=== PATIENT | female | born 1995 | race Asian ===

== ENCOUNTER 2018-11-25 16:52 | Emergency (ER) | payer OTHER ==
[2018-11-25 16:55] VITALS: BMI 32.3
--- NOTE | 2018-11-25 16:56 | PDOC ---
Rapid Medical Evaluation Chief Complaint: Allergic Reaction Time Seen by Provider: 11/25/18 16:53 Medical Evaluation: Allergies Allergy/AdvReac Type Severity Reaction Status Date / Time amoxicillin [Amoxicillin] Allergy Verified 07/27/14 09:26 11/25/18 16:53 I have performed a brief in person evaluation of the patient. 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 She contacted her flight attendant/inflight manager who advised her to take Benadryl 50 mg PO which she took and administer herself Epi. She has never had to use her Epi pen before. PE: Skin: flesh colored papules to right UE and around neck. HEENT: Oropharynx clear. No tongue edema or elevation Lungs: Clear Heart: RRR MS: Moves all extremities Neuro: Alert Psych: Appropriate affect The patient will proceed to main ED for further evaluation. Discharge Disposition - Diagnosis Allergic reaction Qualifiers: Encounter type: initial encounter Qualified Code(s): T78.40XA - Allergy, unspecified, initial encounter - Referrals - Patient Instructions - Post Discharge Activity
--- NOTE | 2018-11-25 17:10 | PDOC ---
History of Present Illness - General Chief Complaint: Allergic Reaction Stated Complaint: allergies Time Seen by Provider: 11/25/18 16:53 - History of Present Illness Initial Comments: 23 year old female with PMH of cat allergy presenting with urticaria and wheezing after a desensitization shot in her physician's office. Patient skipped her previous shot and believes this is why her reaction to this shot was so severe. She had her shot around 14:00 and it burned slightly. One hour later she had some mild urticaria around her injection site and across her chest. She called her physician who advised her to take two Benadryl 25 MG at 16 :15 and then an epi pen at 16:45 after noticing wheezing, eye itching, and cough. Denies nausea, vomiting, lip swelling, or other symptoms. 11/25/18 17:25 Past History - Past Medical History Allergies/Adverse Reactions: Allergies Allergy/AdvReac Type Severity Reaction Status Date / Time amoxicillin [Amoxicillin] Allergy Verified 07/27/14 09:26 Home Medications: Ambulatory Orders Epinephrine [Epipen] 0.3 mg IJ ONCE PRN #1 auto.injct 11/25/18 Prednisone [Deltasone] 40 mg PO DAILY 4 Days #8 tablet 11/25/18 Ranitidine [Zantac -] 150 mg PO DAILY 7 Days #7 tablet 11/25/18 GI Disorders: Yes (gerd) - Reproductive History (#): 0 - Suicide/Smoking/Psychosocial Hx Smoking History: Never smoked Hx Alcohol Use: No Drug/Substance Use Hx: No Substance Use Type: None Hx Substance Use Treatment: No Review of Systems - Review of Systems Constitutional: No: Chills, Diaphoresis, Fever HEENTM: No: Eye Pain, Blurred Vision, Tearing Respiratory: Yes: Shortness of Breath, Wheezing. No: Cough, Orthopnea Cardiac (ROS): No: Chest Pain, Edema, Irregular Heart Rate ABD/GI: No: Constipated, Diarrhea, Nausea, Vomiting : No: Burning, Dysuria, Discharge Integumentary: Yes: Erythema, Lesions, Pruritus Neurological: No: Headache, Paresthesia, Weakness Psychiatric: No: Anxiety, Depression Endocrine: No: Excessive Sweating, Flushing Hematologic/Lymphatic: No: Anemia, Blood Clots, Easy Bleeding *Physical Exam - Vital Signs Last Vital Signs Temp Pulse Resp BP Pulse Ox 98.1 F 102 H 20 150/76 98 11/25/18 16:53 11/25/18 16:53 11/25/18 16:53 11/25/18 16:53 11/25/18 16:53 - Physical Exam General Appearance: Yes: Nourished, Appropriately Dressed. No: Apparent Distress HEENT: positive: EOMI, AMY, Normal ENT Inspection, Normal Voice Neck: positive: Trachea midline, Normal Thyroid, Supple. negative: Tender, Rigid Respiratory/Chest: positive: Lungs Clear, Normal Breath Sounds. negative: Chest Tender, Respiratory Distress, Accessory Muscle Use Cardiovascular: positive: Regular Rhythm, Regular Rate Gastrointestinal/Abdominal: positive: Normal Bowel Sounds, Flat, Soft. negative : Tender Lymphatic: negative: Adenopathy, Tenderness Musculoskeletal: positive: Normal Inspection. negative: Decreased Range of Motion Extremity: positive: Normal Capillary Refill, Normal Inspection, Normal Range of Motion. negative: Tender Integumentary: positive: Normal Color, Dry, Warm, Rash (mild urticaria over left arm and across upper chest/ lower neck that appears to be resolving), Other Neurologic: positive: Fully Oriented, Alert, Normal Mood/Affect, Normal Response , Motor Strength 5/5 Medical Decision Making - Medical Decision Making 23 year old female with PMH of cat allergy presenting with allergic reaction to desensitization shot a few hours prior with improvement s/p epinephrine and Benadryl 50 mg. Given steroids 60 MG and ranitidine. Patient' symptoms improved and monitored for 6 hours then discharged. Given PCP and other follow up resources. Dr. Stewart will DC when ready. 11/25/18 18:30 *DC/Admit/Observation/Transfer Diagnosis at time of Disposition: Allergic reaction Qualifiers: Encounter type: initial encounter Qualified Code(s): T78.40XA - Allergy, unspecified, initial encounter - Discharge Dispostion Disposition: HOME Condition at time of disposition: Improved Decision to Admit order: No - Prescriptions Prescriptions: Epinephrine [Epipen] 0.3 mg IJ ONCE PRN #1 auto.injct PRN Reason: Dry Skin Prednisone [Deltasone] 40 mg PO DAILY 4 Days #8 tablet Ranitidine [Zantac -] 150 mg PO DAILY 7 Days #7 tablet - Referrals Referrals: William Velarde MD [Primary Care Provider] - - Patient Instructions Printed Discharge Instructions: DI for General Allergic Reactions Additional Instructions: Please use Benadryl for any subsequent rashes or itching. Pelas euse the steroids for the next 4 days. Please use the zantac daily for one week. Please discuss your reaction with your plate filler. Please follow up with your PCP if you have any more questions. Please return to the ED if you have new or worsening symptoms. - Post Discharge Activity
[2018-11-25] MEDS ORDERED: predniSONE 20 MG TABLET (UD) PO ONE (17:22)
[2018-11-25] MEDS ORDERED: RANITIDINE HCL 150 MG/10 ML UNIT-DOSE PO ONE (17:23)
[2018-11-25] MEDS ORDERED: predniSONE 20 MG TABLET (UD) ONE ×2 (17:33→17:37)
[2018-11-25] MEDS ORDERED: RANITIDINE HCL 150 MG TABLET (FP) ONE (17:34)
[2018-11-25 20:33] VITALS: TEMP 99.1
--- NOTE | 2018-11-25 20:42 | PDOC ---
Documentation entered by Matilde Fritz SCRIBE, acting as scribe for Supriya Stewart DO. Supriya Stewart DO: This documentation has been prepared by the Lam norman Daisy, SCRIBE, under my direction and personally reviewed by me in its entirety. I confirm that the documentation accurately reflects all work, treatment, procedures, and medical decision making performed by me. Attending Attestation - Resident Resident Name: Zuri Dawn - ED Attending Attestation I have performed the following: I have examined & evaluated the patient, The case was reviewed & discussed with the resident, I agree w/resident's findings & plan - HPI HPI: 11/25/18 17:58 The patient is a 23 YOF with a PMH of cat allergy who presents to the ER with urticaria and wheezing after receiving a desensitization shot at 2PM today. Patient was told to take 2 of Benadryl and an epi pen for her symptoms. Patient came to the ER for further evaluation., Denies any nausea, lip swelling, tongue swelling, difficulty breathing. Allergies: amoxicillin - Physicial Exam PE: 11/25/18 18:04 ADULT PHYSICAL EXAM Constitutional: Awake, alert, oriented. No acute distress. Eyes: PERRL. EOMI. Conjunctivae are not pale. ENT: No lip or tongue swelling. No stridor. Cardiovascular: Regular rate. Regular rhythm. S1, S2 regular. Distal pulses are 2+ and symmetric. Pulmonary/Chest: No evidence of respiratory distress. Clear to auscultation bilaterally. No rales or rhonchi. Abdominal: Soft and non-distended. There is no tenderness. Musculoskeletal: No edema. Full range of motion in all extremities. Skin: (+) urticiaria rash around the injection site. Neurological: Alert and oriented to person, place, and time. Cranial nerves II -XII are grossly intact. - Medical Decision Making 11/25/18 18:11 a/p: 23yo female with hx of cat allergy, who had an injection today for desensitization for the cat and developed a rash and itching and wheezing -used her epipen at 4:45p -took benadryl at home bellhop captain -will give steroids/h2 jamel -no tongue swelling/lip swelling, tolerating secretions, speaking in full sentences -no uvula swelling -urticarial rash from injection site up over the chest -will monitor and reassess 11/25/18 19:29 pt has been ambulatory in the ED urticarial rash improved no sob, no wheezing, no tongue or lip swelling tolerating secretions will continue to monitor 11/25/18 20:37 pt feeling better no rash no itching tolerating po 11/25/18 22:23 pt feeling much better tolerated secretions no lip or tongue swelling. stable for dc to home and follow up with her embedded software manager *DC/Admit/Observation/Transfer Diagnosis at time of Disposition: Allergic reaction Qualifiers: Encounter type: initial encounter Qualified Code(s): T78.40XA - Allergy, unspecified, initial encounter - Discharge Dispostion Disposition: HOME Condition at time of disposition: Improved Decision to Admit order: No - Prescriptions Prescriptions: Prednisone [Deltasone] 40 mg PO DAILY 4 Days #8 tablet Ranitidine [Zantac -] 150 mg PO DAILY 7 Days #7 tablet - Referrals Referrals: William Velarde MD [Primary Care Provider] - - Patient Instructions Printed Discharge Instructions: DI for General Allergic Reactions Additional Instructions: Please use Benadryl for any subsequent rashes or itching. Pelas euse the steroids for the next 4 days. Please use the zantac daily for one week. Please discuss your reaction with your embedded software manager. Please follow up with your PCP if you have any more questions. Please return to the ED if you have new or worsening symptoms. - Post Discharge Activity
[2018-11-25 23:31] VITALS: BP 118/65; PULSE 86
== END 2018-11-25 23:00 | disposition home or self-care (01) ==
LOC: JER 16:52
DX: T78.40XA Allergy, unspecified, initial encounter (principal); K21.9 Gastro-esophageal reflux disease without esophagitis
CPT/HCPCS: 99282-25

== ENCOUNTER 2021-03-02 12:41 | Emergency (ER) | payer OTHER ==
[2021-03-02 13:06] VITALS: BMI 33.8
[2021-03-02] MEDS ORDERED: morphine CARPU-JECT 4 MG/1 ML DISP.SYRIN IVPUSH ONE (15:26)
[2021-03-02] MEDS ORDERED: SODIUM CHLORIDE 0.9% 500 ML INFUS.BAG IV ONE (15:33)
[2021-03-02] MEDS ORDERED: morphine SULFATE 4 MG/ML VIAL ONE (16:53)
[2021-03-02] MEDS ORDERED: ONDANSETRON 4 MG/2 ML VIAL IVPUSH ONE (17:06)
[2021-03-02] MEDS ORDERED: ONDANSETRON 4 MG/2 ML VIAL ONE (17:07)
[2021-03-02 17:19] LABS: BASO % 0.3 % (0-2.0); EOS % 1.4 % (0-4.5); HEMATOCRIT 40.8 % (32.4-45.2); HEMOGLOBIN 13.9 GM/dL (10.7-15.3); LYMPH % 21.7 % (8-40); MCH 30.6 pg (25.7-33.7); MCHC 34.2 g/dl (32.0-36.0); MEAN CELL VOLUME 89.6 fl (80-96); MEAN PLT VOLUME 7.4 fl (7.5-11.1); MONO % 5.6 % (3.8-10.2); PLATELET COUNT 384 10^3/uL (134-434); RBC 4.56 M/mm3 (3.60-5.2); RDW 12.7 % (11.6-15.6); WHITE BLOOD COUNT 10.4 K/mm3 (4.0-10.0)
[2021-03-02 17:29] LABS: EPI CELLS 9 /uL (0-25.1); HYALINE CASTS 1 /uL (0-3.1); INR 1.02 (0.83-1.09); PROTHROMBIN TIME (PATIENT) 12.3 SEC (9.7-13.0); URINE APPEARANCE CLEAR; URINE BACTERIA 75 /uL (0-1359); URINE BILIRUBIN NEGATIVE (NEGATIVE); URINE COLOR YELLOW; URINE GLUCOSE (UA) NEGATIVE (NEGATIVE); URINE KETONE NEGATIVE (NEGATIVE); URINE LEUK ESTERASE TRACE (NEGATIVE); URINE NITRITE NEGATIVE (NEGATIVE); URINE PROTEIN NEGATIVE (NEGATIVE); URINE RBC 10 /uL (0-23.9); URINE WBC 18 /uL (0-25.8)
[2021-03-02 17:32] LABS: ACTIVATED PTT 32.7 SECONDS (25.2-36.5)
[2021-03-02 17:37] LABS: CALCIUM 8.9 mg/dL (8.5-10.1)
[2021-03-02 17:38] LABS: BLOOD UREA NITROGEN 11.4 mg/dL (7-18)
[2021-03-02 17:41] LABS: CREATININE 0.9 mg/dL (0.55-1.3)
[2021-03-02 17:42] LABS: BILIRUBIN,TOTAL 1.3 mg/dL (0.2-1)
[2021-03-02 20:04] VITALS: BP 125/79; PULSE 71; TEMP 98.3
== END 2021-03-02 20:04 | disposition home or self-care (01) ==
LOC: JER 12:41
PROC: 3E033NZ Introduction of Analgesics, Hypnotics, Sedatives into Peripheral Vein, Percutaneous Approach (ICD-10-PCS; principal; 2021-03-02)
PROC: 3E033GC Introduction of Other Therapeutic Substance into Peripheral Vein, Percutaneous Approach (ICD-10-PCS; 2021-03-02)
DX: R10.10 Upper abdominal pain, unspecified (principal)
CPT/HCPCS: 36415; 74177-TC; 76705-TC; 80053; 81003; 83605; 83690; 84703; 85025; 85610; 85730; 87086; 87186; 93005; 93010; 99285-25; Q9967